=== PATIENT | female | born 2000 | race Caucasian/White ===

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

== ENCOUNTER 2019-02-27 18:51 | Emergency (ER) | payer OTHER ==
[~2019-02-27] VITALS: Ht 162.6 cm; Wt 104.3 kg
[2019-02-27] MEDS ORDERED: LIDO700A20 TOP (19:19)
[2019-02-27] MEDS ORDERED: KETO10 PO (19:19)
[2019-02-27] MEDS ORDERED: Cyclobenzaprine5 MG PO (19:19)
== END 2019-02-27 19:27 | disposition home or self-care (01) ==
LOC: ER 18:51
DX: S39.012A Strain of muscle, fascia and tendon of lower back, initial encounter (principal); X50.0XXA Overexertion from strenuous movement or load, initial encounter
CPT/HCPCS: 99283

== ENCOUNTER → 2020-06-08 | Outpatient (CLI) | payer OTHER ==
[~2020-06-08] MED LIST changes: +Cyclobenzaprine5 MG PO; +KETO10 PO; +LIDO700A20 TOP
== END ==
LOC: LAB SHORT 19:08 → LAB 19:08
DX: N89.8 Other specified noninflammatory disorders of vagina (principal)
CPT/HCPCS: 87070; 87205

== ENCOUNTER → 2022-10-22 | Outpatient (CLI) | payer OTHER | END | disposition home or self-care (01) | LOC: LAB 16:00 → LAB SHORT 16:00 | PROVIDERS: Registered Nurse Community Health | DX: Z12.4 Encounter for screening for malignant neoplasm of cervix (principal) | CPT/HCPCS: G0145 ==

== ENCOUNTER → 2023-11-04 | Outpatient (CLI) | payer OTHER ==
[2023-11-04 12:57] LABS: Source, Urine Clean Catch
[2023-11-04 14:31] LABS: BASOPHILS ABSOLUTE AUTO 0.02 K/mm3 (0.00-0.23); BASOPHILS PERCENT AUTO 0 % (0-2); EOSINOPHILS ABSOLUTE AUTO 0.02 K/mm3 (0.00-0.68); EOSINOPHILS PERCENT AUTO 0 % (0-6); Hematocrit 45.7 % (33.0-51.0); Hemoglobin 15.2 g/dL (11.5-16.0); IMMATURE GRAN ABSOLUTE AUTO 0.01 K/mm3 (0.00-0.10); IMMATURE GRAN PERCENT AUTO 0 % (0-1); LYMPHOCYTES ABSOLUTE AUTO 2.31 K/mm3 (0.84-5.20); LYMPHOCYTES PERCENT AUTO 35 % (21-46); MONOCYTES ABSOLUTE AUTO 0.49 K/mm3 (0.16-1.47); MONOCYTES PERCENT AUTO 7 % (4-13); Mean Corpuscular HGB 30.2 pg (26.0-34.0); Mean Corpuscular HGB Conc 33.3 g/dL (31.5-36.5); Mean Corpuscular Volume 91 fL (80-100); Mean Platelet Volume 11.4 fL (9.1-12.4); NEUTROPHILS ABSOLUTE AUTO 3.83 K/mm3 (1.96-9.15); NEUTROPHILS PERCENT AUTO 57 % (41-73); Platelet Count 203 K/mm3 (150-400); RDW Coefficient Variation 12.6 % (11.7-14.2); RDW Standard Deviation 41.2 fL (35.1-46.3); Red Blood Cell Count 5.04 M/mm3 (3.80-5.20); White Blood Cell Count 6.68 K/mm3 (4.00-11.30)
[2023-11-04 14:43] LABS: Appearance, Urine Clear (Clear); Bilirubin, Urine Neg (Neg); Blood, Urine Neg (Neg); Color, Urine Yellow (P-Yellow); Glucose Qualitative, Urine Neg (Neg); Ketones, Urine Neg (Neg); Leukocyte Esterase, Urine 3+ (Neg); Nitrite, Urine Neg (Neg); Protein, Urine 1+ (Neg); Urobilinogen, Urine NORM (Normal)
[2023-11-04 14:56] LABS: Amorphous Light (0-Heavy); Bacteria Mod /hpf; Mucus Light (0-Heavy); Red Blood Cells, Urine 0-2 /hpf (0-2); Squamous Epithelial Cells Few /hpf (Few)
[2023-11-05 16:45] LABS: HIV 1,2 COMBO ANTIGEN/ANTIBODY Negative (Negative)
[2023-11-05 17:11] LABS: HEPATITIS B SURFACE ANTIGEN Negative (Negative)
[2023-11-05 19:34] LABS: HEPATITIS C AB CIA INTERP Negative (Negative); HEPATITIS C ANTIBODY CIA INDEX 0.19 IV
== END ==
LOC: LAB 12:50 → LAB SHORT 12:50
PROVIDERS: Registered Nurse Community Health
DX: Z34.91 Encounter for supervision of normal pregnancy, unspecified, first trimester (principal); Z3A.00 Weeks of gestation of pregnancy not specified
CPT/HCPCS: 81001; 84443; 86803; 87086; 87340; 87389

== ENCOUNTER → 2023-11-26 | Outpatient (CLI) | payer OTHER ==
[2023-11-28 08:12] LABS: APTIMA MEDIA TYPE Urine; C. TRACHOMATIS BY TMA Negative (Negative); N. GONORRHOEAE BY TMA Negative (Negative); SPECIMEN SOURCE Urine
== END | disposition home or self-care (01) ==
LOC: LAB SHORT 11:25
PROVIDERS: Registered Nurse Community Health
DX: O20.9 Hemorrhage in early pregnancy, unspecified (principal); N93.9 Abnormal uterine and vaginal bleeding, unspecified
CPT/HCPCS: 87070; 87086; 87205; 87491; 87591

== ENCOUNTER → 2024-04-06 | Outpatient (CLI) | payer OTHER ==
[2024-04-06 14:50] LABS: Hematocrit 36.1 % (33.0-51.0); Hemoglobin 12.3 g/dL (11.5-16.0)
== END | disposition home or self-care (01) ==
LOC: LAB 13:32 → LAB SHORT 13:32
PROVIDERS: Registered Nurse Community Health
DX: Z34.83 Encounter for supervision of other normal pregnancy, third trimester (principal); Z3A.28 28 weeks gestation of pregnancy
CPT/HCPCS: 82950; 85014; 85018

== ENCOUNTER → 2024-06-02 | Outpatient (CLI) | payer OTHER | END | disposition home or self-care (01) | LOC: LAB SHORT 16:30 → LAB 16:30 | DX: Z34.93 Encounter for supervision of normal pregnancy, unspecified, third trimester (principal) | CPT/HCPCS: 87081; 87150 ==

== ENCOUNTER 2024-06-20 16:47 | Inpatient (IN) | payer OTHER ==
[~2024-06-20] VITALS: Ht 162.6 cm; Wt 114.0 kg
[2024-06-20] VITALS (12 sets, daily range): BP systolic 110–130; BP diastolic 56–77
[2024-06-20] MEDS ORDERED: Lactated Ringer's 1,000 ML IV PRN (17:20)
[2024-06-20] MEDS ORDERED: Misoprostol 200 MCG Tab BC PRN (17:20)
[2024-06-20] MEDS ORDERED: Acetaminophen 500 MG Tab PO PRN (17:20)
[2024-06-20] MEDS ORDERED: Misoprostol 200 MCG Tab PR PRN ×2 (17:20→19:35)
[2024-06-20] MEDS ORDERED: Calcium Carbonate 500 MG Tab Chew PO SCH (17:20)
[2024-06-20] MEDS ORDERED: FentaNYL 2mcg/ml-Bup 0.1% Epd 250 ML EPI PRN (17:20)
[2024-06-20] MEDS ORDERED: Lactated Ringer's 1,000 ML IV SCH ×3 (17:20→19:30)
[2024-06-20] MEDS ORDERED: Tranexamic Acid 100 ML IV SCH (17:20)
[2024-06-20] MEDS ORDERED: Carboprost Tromethamine 250 MCG/ML 1ML Amp IM PRN (17:20)
[2024-06-20] MEDS ORDERED: ePHEDrine Sulfate 50 MG/ML 1ML Injection XX PRN (17:20)
[2024-06-20] MEDS ORDERED: OXYTOCIN/RINGER'S LACTATE 500 ML IV PRN (17:20)
[2024-06-20] MEDS ORDERED: Ondansetron HCl 2 MG / ML 2ML Vial IV PRN (17:20)
[2024-06-20] MEDS ORDERED: Methylergonovine Maleate 0.2MG / ML 1ML Amp IM PRN ×2 (17:20→19:30)
[2024-06-20] MEDS ORDERED: Oxytocin 10 Unit / ML Vial IM PRN (17:20)
[2024-06-20] MEDS ORDERED: PRENATAL TABLE1 EAC2 PO (17:33)
[2024-06-20 17:58] LABS: BASOPHILS ABSOLUTE AUTO 0.02 K/mm3 (0.00-0.23); BASOPHILS PERCENT AUTO 0 % (0-2); EOSINOPHILS ABSOLUTE AUTO 0.01 K/mm3 (0.00-0.68); EOSINOPHILS PERCENT AUTO 0 % (0-6); Hematocrit 37.2 % (33.0-51.0); Hemoglobin 13.1 g/dL (11.5-16.0); IMMATURE GRAN ABSOLUTE AUTO 0.03 K/mm3 (0.00-0.10); IMMATURE GRAN PERCENT AUTO 0 % (0-1); LYMPHOCYTES ABSOLUTE AUTO 2.37 K/mm3 (0.84-5.20); LYMPHOCYTES PERCENT AUTO 21 % (21-46); MONOCYTES ABSOLUTE AUTO 0.67 K/mm3 (0.16-1.47); MONOCYTES PERCENT AUTO 6 % (4-13); Mean Corpuscular HGB Conc 35.2 g/dL (31.5-36.5); Mean Corpuscular Volume 88 fL (80-100); Mean Platelet Volume 11.5 fL (9.1-12.4); NEUTROPHILS ABSOLUTE AUTO 8.22 K/mm3 (1.96-9.15); NEUTROPHILS PERCENT AUTO 73 % (41-73); Platelet Count 160 K/mm3 (150-400); RDW Coefficient Variation 12.9 % (11.7-14.2); RDW Standard Deviation 41.6 fL (35.1-46.3); Red Blood Cell Count 4.22 M/mm3 (3.80-5.20); White Blood Cell Count 11.32 K/mm3 (4.00-11.30)
[2024-06-20] MEDS ORDERED: Benzocaine Topical Anesthetic Spray 60GM TOP PRN (19:25)
[2024-06-20] MEDS ORDERED: Acetaminophen/Codeine 300-30 mg PO PRN (19:25)
[2024-06-20] MEDS ORDERED: Acetaminophen 325 MG TABLET PO PRN (19:25)
[2024-06-20] MEDS ORDERED: Ketorolac Tromethamine 30mg Vial IV PRN (19:30)
[2024-06-20] MEDS ORDERED: FLU VACC TS2024-25(6MOS UP)/PF 45 MCG/0.5 ML SYRINGE IM SCH (19:30)
[2024-06-20] MEDS ORDERED: Witch Hazel/Glycerin PADS TOP PRN (19:30)
[2024-06-20] MEDS ORDERED: Docusate Sodium 100 MG Cap PO PRN (19:30)
[2024-06-20] MEDS ORDERED: Ibuprofen 400 MG Tab PO PRN (19:30)
[2024-06-20] MEDS ORDERED: OxyCODONE 5 mg/Acetamin 325 mg TABLET PO PRN (19:35)
[2024-06-20] MEDS ORDERED: OXYTOCIN/RINGER'S LACTATE 500 ML IV SCH (19:35)
[2024-06-20] MEDS ORDERED: Oxytocin 10 Unit / ML Vial IM ONE (19:35)
[2024-06-20] MEDS ORDERED: Lanolin Cream TOP PRN (19:35)
[2024-06-21 04:58] VITALS: BP 124/60
[2024-06-21 05:50] LABS: Hematocrit 34.6 % (33.0-51.0); Hemoglobin 12.1 g/dL (11.5-16.0); Mean Corpuscular HGB 30.9 pg (26.0-34.0); Mean Corpuscular Volume 89 fL (80-100); Mean Platelet Volume 11.4 fL (9.1-12.4); Platelet Count 138 K/mm3 (150-400); RDW Coefficient Variation 12.9 % (11.7-14.2); RDW Standard Deviation 41.9 fL (35.1-46.3); Red Blood Cell Count 3.91 M/mm3 (3.80-5.20); White Blood Cell Count 13.21 K/mm3 (4.00-11.30)
[2024-06-21 07:19] VITALS: BP 118/69
[2024-06-21] MEDS ORDERED: Prenatal Vit/FE Fumarate/FA 1 Tab PO SCH (09:00)
[2024-06-21 12:31] VITALS: BP 122/70
[2024-06-21 16:09] VITALS: BP 117/59
[2024-06-21 19:36] VITALS: BP 116/68
--- NOTE | 2024-06-21 20:17 | NUR ---
PT D/C HOME WITH BABY. REVIEWED D/C INSTURCITONS. PT HAD NO ADDITIONAL QUESTIONS AT THIS TIME. KNOWS THAT SHE CAN CALL IF SHE DOES HAVE ANY. MATCHED BANDS AND SIGNED D/C PAPERWORK
== END 2024-06-21 19:50 | disposition home or self-care (01) | DRG 807 ==
LOC: BC 16:47 → OBS 16:47 → BC 17:09
PROVIDERS: ADMIT Registered Nurse Community Health
PROC: 10E0XZZ Delivery of Products of Conception, External Approach (ICD-10-PCS; principal; 2024-06-20)
PROC: 0KQM0ZZ Repair Perineum Muscle, Open Approach (ICD-10-PCS; 2024-06-20)
DX: O70.1 Second degree perineal laceration during delivery (principal); Z37.0 Single live birth; Z67.10 Type A blood, Rh positive; Z3A.39 39 weeks gestation of pregnancy; Z88.6 Allergy status to analgesic agent; Z79.899 Other long term (current) drug therapy
CPT/HCPCS: 36415; 59025; 85025; 85027; 86850; 86900; 86901; 99214; A9270; J1885; J2590; J7120